=== PATIENT | female | born 1970 | race Caucasian/White ===

== ENCOUNTER 2018-09-08 14:17 | Emergency (ER) | payer OTHER ==
[2018-09-08 14:26] VITALS: BMI 29.0
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
[2018-09-08] MEDS ORDERED: ACETAMINOPHEN 325 MG TABLET (FP) PO ONE (14:49)
[2018-09-08] MEDS ORDERED: ALBUTEROL SO4 0.083% IH SOL 2.5 MG/3 ML VIAL.NEB. NEB ONE ×2 (14:49→15:18)
[2018-09-08] MEDS ORDERED: ACETAMINOPHEN 325 MG TABLET (FP) ONE (15:19)
--- NOTE | 2018-09-08 15:59 | PDOC ---
Attending Attestation - Resident Resident Name: MarkusBecka - ED Attending Attestation I have performed the following: I have examined & evaluated the patient, The case was reviewed & discussed with the resident, I agree w/resident's findings & plan, Exceptions are as noted - HPI HPI: 09/08/18 15:53 48 yo F with no pmhx , h/o prior wheezing, here with /co cough nasal congestion , body aches, subjective fever chills, sore throat. no rash, no sick contacts. no travel. no n/v no abd pain. has used albuterol mdi in past for seasonal wheezing, but does not have any now. - Physicial Exam PE: 09/08/18 15:54 awake alert bilat wheezing , normal effort. heart reg tachycardia, no mrg abd soft nt nd. ext wwp no edema. no rash. skin warm and dry. no rash. nuero alert oriented x 3. - Medical Decision Making 09/08/18 15:57 differential viral uri, bronchitis, influenzae, pneumonia. plan fever control. hydration labs, cxr r/o pna, bronchodilators.
[2018-09-08 16:01] LABS: EOS % 0.4 % (0-4.5); HEMATOCRIT 38.3 % (32.4-45.2); HEMOGLOBIN 12.8 GM/dL (10.7-15.3); LYMPH % 11.1 % (8-40); MCH 27.8 pg (25.7-33.7); MCHC 33.3 g/dl (32.0-36.0); MEAN CELL VOLUME 83.4 fl (80-96); MEAN PLT VOLUME 7.8 fl (7.5-11.1); MONO % 9.5 % (3.8-10.2); PLATELET COUNT 245 K/MM3 (134-434); RBC 4.59 M/mm3 (3.60-5.2); RDW 14.5 % (11.6-15.6); WHITE BLOOD COUNT 7.9 K/mm3 (4.0-10.0)
[2018-09-08 16:25] LABS: ALBUMIN 3.9 g/dl (3.4-5.0); ALK PHOS 115 U/L (45-117); ANION GAP 7 MMOL/L (8-16); BILIRUBIN,TOTAL 0.3 mg/dL (0.2-1); BLOOD UREA NITROGEN 12 mg/dL (7-18); CALCIUM 9.1 mg/dL (8.5-10.1); CHLORIDE 102 mmol/L (98-107); CO2 27 mmol/L (21-32); CREATININE 1.1 mg/dL (0.55-1.3); GLUCOSE,RANDOM 120 mg/dL (74-106); SGOT/AST 19 U/L (15-37); SGPT/ALT 31 U/L (13-61); SODIUM 136 mmol/L (136-145); TOT PROT 7.5 g/dl (6.4-8.2)
[2018-09-08 16:42] VITALS: BP 135/73; PULSE 85; TEMP 98.5
== END 2018-09-08 16:48 | disposition home or self-care (01) ==
LOC: JER 14:17
PROC: 3E0F7GC Introduction of Other Therapeutic Substance into Respiratory Tract, Via Natural or Artificial Opening (ICD-10-PCS; principal; 2018-09-08)
DX: J09.X2 Influenza due to identified novel influenza A virus with other respiratory manifestations (principal)
CPT/HCPCS: 36415; 71045-TC-FY; 80053; 85025; 87804; 99281-25

== ENCOUNTER 2019-10-25 11:37 | Day surgery (SDC) | payer OTHER ==
[2019-10-16 15:13] VITALS: BMI 33.7
[2019-10-25] MEDS ORDERED: PROPOFOL 20 ML ONE ×2 (12:24)
[2019-10-25] MEDS ORDERED: ACETAMINOPHEN 325 MG TABLET (FP) ONE (15:29)
[2019-10-25 16:31] VITALS: PULSE 79
[2019-10-25 17:09] VITALS: BP 124/71; TEMP 98.7
--- NOTE | 2019-10-27 16:52 | PATH ---
Surgical Pathology Report Patient Name: ARELI HENAO [facility]. Rec. #: [id number] /Age/Gender: 1970 (Age: 49) / F Account: [id number] Location: [facility] Taken: 10/25/2019 Received: 10/25/2019 Reported: 10/27/2019 Physicians: Ronna Streeter M.D. Specimen(s) Received A: SECOND PORTION DUODENUM B: GASTRIC ANTRUM C: GE JUNCTION Clinical History Reflux Postoperative diagnosis: Gastritis Final Diagnosis A. SECOND PORTION OF DUODENUM, BIOPSY: DUODENAL MUCOSA WITH NO SIGNIFICANT PATHOLOGIC CHANGE. NO HISTOLOGIC EVIDENCE OF CELIAC DISEASE. B. ANTRUM, BIOPSY: GASTRIC MUCOSA WITH CHRONIC GASTRITIS. IMMUNOSTAIN FOR H. PYLORI IS NEGATIVE. NEGATIVE FOR INTESTINAL METAPLASIA. C. GE JUNCTION, BIOPSY: COLUMNAR (GASTRIC) MUCOSA WITH NO SIGNIFICANT PATHOLOGIC CHANGE. NO SQUAMOUS EPITHELIUM PRESENT. NEGATIVE FOR INTESTINAL METAPLASIA. Electronically Signed Jamal Betancourt M.D. Gross Description A. Received in formalin, labeled "biopsy second portion of duodenum" are 2 trotter, irregular portions of soft tissue measuring 0.2 and 0.4 cm. in greatest dimension. The specimens are submitted in toto in one cassette. B. Received in formalin, labeled "biopsy gastric antrum" is a trotter, irregular portion of soft tissue measuring 0.3 cm. in greatest dimension. The specimen is submitted in toto in one cassette. C. Received in formalin, labeled "biopsy GE junction" is a trotter, irregular portion of soft tissue measuring 0.4 cm. in greatest dimension. The specimen is submitted in toto in one cassette. 10/26/2019 [facility]/26/2019
== END 2019-10-25 16:00 | disposition home or self-care (01) ==
LOC: FASU-ENDO 11:37
PROVIDERS: ATTEND Internal Medicine Gastroenterology
PROC: 0DB68ZX Excision of Stomach, Via Natural or Artificial Opening Endoscopic, Diagnostic (ICD-10-PCS; 2019-10-25)
PROC: 0DB48ZX Excision of Esophagogastric Junction, Via Natural or Artificial Opening Endoscopic, Diagnostic (ICD-10-PCS; 2019-10-25)
PROC: 0DB98ZX Excision of Duodenum, Via Natural or Artificial Opening Endoscopic, Diagnostic (ICD-10-PCS; principal; 2019-10-25 14:57)
DX: K29.50 Unspecified chronic gastritis without bleeding (principal); K21.9 Gastro-esophageal reflux disease without esophagitis
CPT/HCPCS: 88305-TC; 88342-TC

== ENCOUNTER 2019-11-15 10:36 | Day surgery (SDC) | payer OTHER ==
[2019-11-02 15:30] VITALS: BMI 33.7
[2019-11-15] MEDS ORDERED: PROPOFOL 20 ML ONE ×2 (13:00)
[2019-11-15 14:13] VITALS: BP 125/74; PULSE 70; TEMP 97.9
--- NOTE | 2019-11-17 16:04 | PATH ---
Surgical Pathology Report Patient Name: ARELI HENAO [facility]. Rec. #: [id number] /Age/Gender: 1970 (Age: 49) / F Account: [id number] Location: [facility] Taken: 11/15/2019 Received: 11/15/2019 Reported: 11/17/2019 Physicians: Ronna Streeter M.D. Specimen(s) Received POLYP PROXIMAL TRANSVERSE COLON Clinical History Screening Postoperative diagnosis: Colon polyp, hemorrhoids Final Diagnosis PROXIMAL TRANSVERSE COLON, POLYP, BIOPSY: TUBULAR ADENOMA. Electronically Signed Ronna Oliver M.D. Gross Description Received in formalin, labeled "biopsy polyp transverse colon" is a trotter, irregular portion of soft tissue measuring 0.3 cm. in greatest dimension. The specimen is submitted in toto in one cassette. 11/16/2019 [facility]/16/2019
== END 2019-11-15 14:13 | disposition home or self-care (01) ==
LOC: FASU-ENDO 10:36
PROVIDERS: ATTEND Internal Medicine Gastroenterology
PROC: 0DBL8ZX Excision of Transverse Colon, Via Natural or Artificial Opening Endoscopic, Diagnostic (ICD-10-PCS; principal; 2019-11-15 13:00)
DX: Z12.11 Encounter for screening for malignant neoplasm of colon (principal); D12.3 Benign neoplasm of transverse colon; K64.1 Second degree hemorrhoids
CPT/HCPCS: 88305-TC